=== PATIENT | female | born 1975 | race Hispanic/Latino ===

== ENCOUNTER 2022-05-06 18:28 | Emergency (ER) | payer SELFPAY ==
[2022-05-06 18:41] VITALS: BP 108/66; PULSE 52; RESP 16; TEMP 36.3; O2SAT 100
--- NOTE | 2022-05-06 18:44 | ED.DIZZY ---
HPI - Dizziness General Chief Complaint: Dizziness Stated Complaint: Dizzy Time Seen by Provider: 05/06/22 18:44 Source: patient and RN notes reviewed Mode of arrival: ambulatory Limitations: no limitations History of Present Illness HPI Narrative: 46-year-old female presents to the [facility] with complaints of dizziness for 3 days. Worse with changing of positions. Has occasional shortness of breath. Denies any chest pain or abdominal pain. Denies fevers. No treatment prior to arrival. Patient denies any significant past medical or surgical history. Refer to a clothing room supervisor via phone, patient declined wanting to use her daughter. Onset (ago): day(s) (3) Review of Systems Review of Systems: All systems reviewed & are unremarkable except as noted in HPI and below Constitutional: Constitutional: Reports no additional constitutional complaints, Denies chills and Denies fever(s) Eyes: Eyes: Reports no additional eye complaints ENT: Reports system reviewed and no additional complaints, except as documented Cardiovascular: Cardiovascular: Reports no additional cardiovascular complaints Respiratory: Respiratory: Reports no additional respiratory complaints Gastrointestinal: Gastrointestinal: Reports no additional gastrointestinal complaints Musculoskeletal: Musculoskeletal: Reports no additional musculoskeletal complaints Integumentary/Breasts: Skin/Breast: Reports system reviewed and no additional complaints, except as docu Neurologic: Reports as per HPI, Reports dizziness, Denies syncope, Denies headache(s), Denies focal weakness, Denies numbness and Reports weakness (Generalized) Psychiatric: Psychiatric: Reports no additional psychiatric complaints Allergic/Immunologic: Allergic/Immunologic: Reports no additional allergic/immunologic complaints PMFSH Past Medical History Medical History Patient denies medical problems Surgical History Surgical History No pertinent past surgical history Social History Social History (Updated 05/06/22 @ 19:13 by Tereza Joel APRN) Living arrangements: with family Gender identity (if verbalized by the patient): Female Comments At the time of my signature, I reviewed and agree with the nursing past medical, surgical, social, and family history. There is no relevant family history pertinent to the patient complaint. Exam Const: General: healthy appearing, no acute distress and alert Nutritional Appearance: well nourished Orientation/consciousness: patient oriented x3 Limitations: no limitations HENMT: Head: normal to inspection Ears: external ears normal, TM's normal bilaterally and EAC's normal General nose exam: Normal external nose present Eyes: General: appearance normal, both eyes and all related structures Pupils: Equal, round and reactive pupils present Neck: Neck: normal visual inspection, no lymphadenopathy and no meningeal signs Chest: Chest palpation & inspection: normal inspection of the chest Resp: Effort & Inspection: normal respiratory effort and no use of accessory muscles Auscultation: clear to auscultation bilaterally, no crackles, no rales, no rhonchi and no wheezes Cardio: Rate: bradycardic Rhythm: regular rhythm GI: GI Palp: Yes Soft to palpation and No Tenderness to palpation present (GI) Back/Spine/Pelvis: Cervical Spine: normal cervical lordosis Thoracic/Lumbar Spine: thoracic and lumbar spine normal to inspection Skin: General skin exam: normal color Rashes: no rashes Wounds: no wounds Neuro: General: patient oriented x3, moves all extremities, no meningeal signs and no focal motor deficits Cranial nerves: Yes Equal, round and reactive pupils present Speech: normal speech Gait exam (Neuro): Normal gait present Extrem: General: normal to inspection, full ROM and capillary refill normal Psych: Appearance: grossly normal
--- NOTE | 2022-05-06 18:49 | ECG_ITS ---
Measurements Intervals [place] Rate: 51 P: 39 RI: 187 QRS: 50 QRSD: 82 T: 30 QT: 407 QTc: 375 Interpretive Statements SINUS BRADYCARDIA BASELINE ARTIFACT- III, V2 BORDERLINE ECG Electronically Signed On 05-06-2022 20:50:03 CDT by Boone De D.O.
[2022-05-06 19:03] VITALS: BP 128/65; BP 135/68; PULSE 50
[2022-05-06 19:04] VITALS: BP 139/70; PULSE 50
== END 2022-05-06 19:10 | disposition short-term general hospital (02) ==
PROVIDERS: Emergency Provider Nurse Practitioner; PCP Registered Nurse
DX: R00.1 Bradycardia, unspecified (principal)
CPT/HCPCS: 93005; 99203; G0463

== ENCOUNTER 2022-05-06 19:30 | Emergency (ER) | payer SELFPAY ==
[2022-05-06] VITALS (15 sets, daily range): BP systolic 112–141; BP diastolic 62–73; PULSE 44–53; RESP 13–21; TEMP 36.7; O2SAT 99–100
--- NOTE | ~2022-05-06 | XR_ITS ---
EXAMINATION: XR chest 2V Exam Date/Time: 05/06/2022 20:42 CDT HISTORY: palpations, SHORTNESS OF BREATH Comparison: None available. RESULT: Lines, tubes, and devices: None. Lungs and pleura: Clear. Cardiomediastinal silhouette: Normal. Other: No acute osseous or upper abdominal finding. IMPRESSION: No acute cardiopulmonary process. Reviewed, dictated and finalized at location K.
--- NOTE | 2022-05-06 19:32 | ECG_ITS ---
Measurements Intervals [place] Rate: 49 P: 28 MA: 197 QRS: 55 QRSD: 89 T: 37 QT: 423 QTc: 382 Interpretive Statements SINUS BRADYCARDIA BORDERLINE ECG Electronically Signed On 05-07-2022 7:10:01 CDT by Boone De D.O.
[2022-05-06] MEDS: SODIUM CHLORIDE 0.9% IV 1,000 ML 999 ML IV CONT (20:38)
[2022-05-06] MEDS: MECLIZINE HCL 25 MG TABLET PO (20:38)
[2022-05-06 20:39] LABS: Basophils Percent Auto 0.3 % (0.2-1.2); Eosinophils Absolute Auto 0.1 K/mm3 (0-0.3); Eosinophils Percent Auto 1.6 % (0-4.4); Hematocrit 34.1 % (37.0-47.0); Hemoglobin 11.3 g/dL (12.0-15.0); Immature Granulocyte Absolute 0.03 K/mm3 (0.00-0.031); Immature Granulocyte Percent A 0.5 % (0-0.5); Lymphocytes Absolute Auto 1.72 K/mm3 (0.9-3.2); Lymphocytes Percent Auto 29.9 % (18.3-44.2); Mean Corpuscular HGB Conc 33.1 g/dl (32-36); Mean Corpuscular Hemoglobin 30.5 pg (26-34); Mean Corpuscular Volume 91.9 fl (80-100); Mean Platelet Volume 9.9 fl (7.4-10.4); Monocytes Absolute Auto 0.4 K/mm3 (0.1-0.6); Monocytes Percent Auto 7.5 % (2.6-8.5); Neutrophils Absolute Auto 3.5 K/mm3 (1.3-6.7); Neutrophils Percent Auto 60.2 % (45.5-73.1); Platelet Count Result 144 k/mm3 (150-375); Red Blood Count 3.71 M/mm3 (4.2-5.4); Red Cell Distribution Width 14.6 % (11.5-14.5); White Blood Count 5.8 K/mm3 (4.5-10.0)
[2022-05-06] MEDS: ASPIRIN 81 MG CHEWABLE TABLET 324 MG PO (20:39)
[2022-05-06 20:48] LABS: Alanine Aminotransferase 22 U/L (6-35); Albumin Level 4.2 g/dL (3.5-5.1); Alkaline Phosphatase 85 U/L (38-126); Anion Gap 5 mmol/L (8-16); Aspartate Amino Transferase 27 U/L (14-36); Bilirubin,Total 0.4 mg/dL (0.2-1.3); Blood Urea Nitrogen 12 mg/dL (7-17); Calcium 8.6 mg/dL (8.4-10.2); Carbon Dioxide 31 mmol/L (22-30); Chloride 104 mmol/L (98-107); Estimated Glomerular Filt Rate > 60; Glucose 101 mg/dL (65-110); Lipase 78 U/L (23-300); Potassium 3.7 mmol/L (3.4-5.0); Sodium 140 mmol/L (137-145)
[2022-05-06 20:49] LABS: Prothrombin Time 12.9 Seconds (11.1-14.7)
[2022-05-06 20:50] LABS: Partial Thromboplastin Time 29.5 SECONDS (22.3-36.8)
--- NOTE | 2022-05-06 20:51 | ED.GENADULT ---
HPI - General Adult General Chief complaint: Arrhythmia/Palpitations Stated complaint: palpations Time Seen by Provider: 05/06/22 20:00 Source: patient and RN notes reviewed Mode of arrival: ambulatory Limitations: language barrier (video park interpreter used) History of Present Illness HPI narrative: This is 46 year old female who presents for evaluation of dizziness. Patient went to be evaluated at [facility] for dizziness and she was found to be in sinus bradycardia. She was sent to ER due to bradycardia. Patient reports dizziness for 3 days, and it is intermittent. She reports dizziness with sitting up and standing. She describes dizziness as everything is spinning. She denies associated focal weakness, nausea, vomiting. She has been able to walk. She denies URI symptoms. She denies cough, chest pain or fever. She states she felt short of breath with she is dizzy but otherwise okay. She denies any dizziness at this time. Related Data Allergies Allergy/AdvReac Type Severity Reaction Status Date / Time No Known Allergies Allergy Verified 05/06/22 20:19 Review of Systems Review of Systems: All systems reviewed & are unremarkable except as noted in HPI and below Constitutional: Constitutional: Denies chills, Denies fatigue and Denies fever(s) ENT: Reports vertigo, Denies nasal congestion and Denies sore throat Cardiovascular: Cardiovascular: Denies chest pain and Denies radiating jaw, neck or arm pain Respiratory: Respiratory: Denies chest congestion, Denies cough and Denies wheezing Gastrointestinal: Gastrointestinal: Denies abdominal pain, Denies bloating, Denies nausea and Denies vomiting Neurologic: Reports vertigo, Reports headache(s) and Denies focal weakness PMFSH Past Medical History Medical History Patient denies medical problems Surgical History Surgical History No pertinent past surgical history Social History Social History (Updated 05/06/22 @ 19:13 by Tereza Joel APRN) Gender identity (if verbalized by the patient): Female Exam Narrative: GENERAL: Well-appearing, well-nourished, and in no acute distress. HEAD: Normocephalic, atraumatic EYES: PERRLA and EOMI, conjunctiva clear without discharge EARS: TM's clear bilaterally without erythema or dullness NOSE: Nares clear, no rhinorrhea or epistaxis THROAT:Mucous membranes moist, Oropharynx normal without erythema, exudate, peritonsillar swelling or fluctuance NECK: Supple, without lymphadenopathy or mass RESPIRATORY: No respiratory distress, Airway patent, Respirations non-labored, Clear to auscultation without rales, rhonchi or wheeze HEART: bradycardic rate and regular rhythm. No murmur heard. Normal peripheral pulses. ABDOMEN: Soft, nontender, nondistended, normal active bowel sounds. No masses. No rebound or guarding, No organomegaly. EXTREMITIES: No edema, normal strength with full range of motion. SKIN: Warm, dry, normal color without rash NEURO: Alert and oriented x3. CN 2-12 grossly intact. No focal deficits. PSYCH: Normal mood and affect. Neuro: General: patient oriented x3, moves all extremities, no focal motor deficits and CN's II-XI intact bilaterally Cranial nerves: Yes Nystagmus not present Speech: normal speech Gait exam (Neuro): Normal gait present Motor exam (neuro): 5/5 motor strength present throughout and Pronator motor function not present Sensory Exam: normal sensation Coordination: [id number] test normal Psych: Mental Status: mental status grossly normal Affect: normal affect Course Reevaluation(s) Reevaluation #1: I discussed with patient labs are unremarkable. She has been in sinus bradycardic but it does not seem to be cause of her symptoms. She is having vertigo. She has not neurological deficits. she has steady gait. She was able walk around nurses station without dizziness. I
[2022-05-06 21:00] LABS: Troponin I < 0.012 ng/mL (0.000-0.034)
== END 2022-05-06 22:58 | disposition home or self-care (01) ==
PROVIDERS: Emergency Medicine; Emergency Provider General Practice; PCP Registered Nurse
DX: R42 Dizziness and giddiness (principal); R00.1 Bradycardia, unspecified
CPT/HCPCS: 36415; 71046; 80053; 83690; 84484; 85025; 85610; 85730; 93005; 96360; 96361; 99284; A9270; J7030